=== PATIENT | female | born 1975 | race Asian ===

== ENCOUNTER 2018-11-27 11:50 | Emergency (ER) | payer BC ==
[~2018-11-27] VITALS: Ht 162.6 cm; Wt 54.4 kg
[2018-11-27 11:53] VITALS: BP_SYST 114
--- NOTE | 2018-11-27 12:00 | NUR ---
Ambulatory to bed 4
--- NOTE | 2018-11-27 12:20 | NUR ---
ER Dr. Wolff at bedside examining patient.
--- NOTE | 2018-11-27 12:29 | NUR ---
Pt brought by self, ambulatory, A&Ox4, pt presents to ER with R earache, pain with urination and lower abdominal discomfort /, pt denies vaginal bleeding , afebrile, skin pink and warm , will continue to monitor.
[2018-11-27] MEDS ORDERED: KETOROLAC TROMETHAMINE 60 MG/2 ML VIAL IM ONE (12:45)
[2018-11-27 13:10] VITALS: BP_SYST 110
--- NOTE | 2018-11-27 13:10 | NUR ---
Patient given written and verbal discharge instructions and verbalizes understanding. ER MD discussed with patient the results and treatment provided. Patient in stable condition. ID arm band removed. Rx of tylenol, sudafed and pyridium given. Patient educated on pain management and to follow up with PMD. Pain Scale 3. Opportunity for questions provided and answered. Medication side effect fact sheet provided.
== END 2018-11-27 13:10 | disposition home or self-care (01) ==
LOC: SED 11:50
DX: H69.91 Unspecified Eustachian tube disorder, right ear (principal); N30.90 Cystitis, unspecified without hematuria; F41.9 Anxiety disorder, unspecified; Z88.0 Allergy status to penicillin
CPT/HCPCS: 96372; 99283; J1885